=== PATIENT | female | born 1995 | race Two or more races ===

== ENCOUNTER 2018-01-23 13:59 | Outpatient (CLI) | END 2018-01-23 17:00 | disposition home or self-care (01) ==

== ENCOUNTER 2018-01-23 17:26 | Emergency (ER) | END 2018-01-23 19:26 | disposition home or self-care (01) ==

== ENCOUNTER 2018-05-19 06:05 | Inpatient (IN) | payer MEDICAID, OTHER ==
[~2018-05-19] VITALS: Ht 162.6 cm; Wt 84.0 kg
[~2018-05-19 06:05] MED LIST: ACET325T33 PO
[2018-05-19 06:40] VITALS: Ht 162.6 cm; Wt 84.0 kg
[2018-05-19 06:41] VITALS: BP 115/71; PULSE 64; RESP 18
[2018-05-19] MEDS ORDERED: TERBUTALINE 1 MG/ML INJ SC ONE (07:30)
[2018-05-19] MEDS ORDERED: LACTATED RINGER'S 1,000 ML IV ONE (07:30)
[2018-05-19] MEDS ORDERED: CEFTRIAXONE 1 GM/50 ML (PMX) 50 ML IVPB ONE (07:30)
[2018-05-19] MEDS ORDERED: LACTATED RINGER'S 1,000 ML IV SCH (13:05)
[2018-05-19] MEDS: LACTATED RINGER'S 1,000 ML IV SCH ×2 (13:17→22:42)
[2018-05-19] MEDS ORDERED: BUTORPHANOL 1 MG INJ IV PRN (13:30)
[2018-05-19] MEDS ORDERED: MISOPROSTOL 200 MCG TAB PR PRN (13:30)
[2018-05-19] MEDS ORDERED: LIDOCAINE 1% (MPF) 30 ML INJ INJ PRN (13:30)
[2018-05-19] MEDS ORDERED: METHYLERGONOVINE 0.2 MG INJ IM PRN (13:30)
[2018-05-19] MEDS ORDERED: BUTORPHANOL 2 MG INJ IV PRN (13:30)
[2018-05-19] MEDS ORDERED: OXYTOCIN 30 UNITS/LR 500 ML IV PRN (13:30)
[2018-05-19] MEDS ORDERED: OXYTOCIN 30 UNITS/LR 500 ML IV SCH ×2 (13:30)
[2018-05-19] MEDS ORDERED: CARBOPROST 250 MCG INJ IM PRN (13:30)
[2018-05-19] MEDS ORDERED: AMPICILLIN 2 GM/NS (PMX) 100 ML ONE (15:48)
[2018-05-19] MEDS ORDERED: AMPICILLIN 2 GM/NS (PMX) 100 ML IVPB ONE (16:00)
--- NOTE | 2018-05-19 16:59 | HP ---
Date/Time of Note Date/Time of Note DATE: 05/19/18 TIME: 16:49 OB - History Hx of Present Free Text/Dictation 22y.o at 36w4d here with vaginal bleeding since this 0400 this AM also c/o back pain with decrease movement since 05/08/18 VE 2/60/-2 EFM CAT I CVA left + tenderness IV hydration and rocephin 1gm given , still showing UC frequently admitted for expectant management. GBS unknown no record is available. Chief Complaint: UC's with back pain Estimated Due Date: Jun 12, 2018 : 1 Para: 0 Spontaneous : 0 Therapeutic : 0 Care: Other Ultrasounds: Other Obstetrical Complications: None Medical Complications: None Past Family/Social History * Past Medical, Surgical, Family and Obstetric Histories reviewed from chart. Blood Type: Unknown Rubella: unknown RPR/VDRL: Unknown GBS Status: Unknown HBsAG: Unknown OB Admission Exam Vital Signs Vital Signs Vital Signs Date Temp Pulse Resp B/P (MAP) Pulse Ox O2 O2 Flow FiO2 Time Delivery Rate 05/19/18 97.4 64 18 115/71 Room Air 06:41 (86) Physical Exam HEENT: WNL Heart: Rhythm Normal Lungs: Clear, Equal Abdomen: WNL Extremities: Normal Reflexes: Normal Cervical Dilatation: 2cm Effacement: 50% Station: -2 Membranes: Intact Amniotic Fluid: Unevaluable Heart Rate: 130's Accelerations: Accelerations Present Decelerations: No Decelerations Varibility: Moderate Contractions on Admission: < 5 Minutes Apart Intensity: Mild Last 72 hours Lab Results CBC & BMP 05/19/18 14:31 OB Assessment/Plan Reason for admission: labor Other Assessment: IUP 36w4d UTI Plan: Expectant Management, Other (rocephin) LORELEI SANTIAGO MD May 19, 2018 16:59
[2018-05-19] MEDS ORDERED: FENTAnyl 2MCG/ML-ROPIV 0.2% 100 ML ONE (19:45)
--- NOTE | 2018-05-19 19:47 | PREAC ---
Date/Time of Note Date/Time of Note DATE: 05/19/18 TIME: 19:46 Anesthesia Eval and Record Evaluation Time Pre-Procedure Interview DATE: 05/19/18 TIME: 19:46 Age 22 Sex female NPO: 8 hrs Preoperative diagnosis iup at 37 weeks Planned procedure labor epidural Past Medical History Past Medical History: Includes GI: Obesity Surgery & Anesthesia Issues No known issue Meds Anticoagulation: No Beta Maday within 24 hr: No Reason Beta Maday not given: Pt. not on B-Maday Active Scripts Acetaminophen* (Tylenol*) 325 Mg Tablet, 1 TAB PO Q6 PRN for PAIN, #20 TAB Prov:VICKI LOPEZ 01/23/18 Current Medications Lactated Ringer's 1,000 ml @ 125 mls/hr Q8H IV Last administered on 05/19/18at 13:17; Admin Dose 125 MLS/HR; Start 05/19/18 at 08:30 Lactated Ringer's 1,000 ml @ 125 mls/hr Q8H IV Last administered on 05/19/18at 18:42; Admin Dose 125 MLS/HR; Start 05/19/18 at 13:05 Butorphanol Tartrate (Stadol) 1 mg Q2H PRN IV .PAIN; Start 05/19/18 at 13:30 Butorphanol Tartrate (Stadol) 2 mg Q2H PRN IV .PAIN; Start 05/19/18 at 13:30 Lidocaine (Xylocaine 1% (Mpf)) 30 ml ONCE PRN INJ .EPISIOTOMY; Start 05/19/18 at 13:30 Oxytocin/Lactated Ringer's 500 ml @ 500 mls/hr ONCE POST IV ; Start 05/19/18 at 13:30 Oxytocin/Lactated Ringer's 500 ml @ 125 mls/hr POST IV ; Start 05/19/18 at 13:30 Oxytocin/Lactated Ringer's 500 ml @ 0 mls/hr ONCE PRN IV .VAGINAL BLEEDING; Start 05/19/18 at 13:30 Methylergonovine Maleate (Methergine) 0.2 mg ONCE PRN IM .VAGINAL BLEEDING; Start 05/19/18 at 13:30 Carboprost Tromethamine (Hemabate) 250 mcg ONCE PRN IM .VAGINAL BLEEDING; Start 05/19/18 at 13:30 Misoprostol (Cytotec) 1,000 mcg ONCE PRN GA .VAGINAL BLEEDING; Start 05/19/18 at 13:30 Ampicillin 50 ml @ 100 mls/hr Q4H IVPB ; Start 05/19/18 at 20:00 Meds reviewed: Yes Allergies Coded Allergies: No Known Allergy (Unverified , 01/23/18) Allergies Reviewed: Yes Labs/Studies Labs Reviewed: Reviewed by anesthesiologist Result Diagram: 05/19/18 1431 Laboratory Tests 05/19/18 14:31 Blood Bank Test 05/19/18 14:31 Antibody Screen NEGATIVE Blood Type O POSITIVE Rh Immune Globulin Candidate NO test: Positive Pre-procedure Exam Last vitals Vital Signs Date Temp Pulse Resp B/P (MAP) Pulse Ox O2 O2 Flow FiO2 Time Delivery Rate 05/19/18 97.4 64 18 115/71 Room Air 06:41 (86) Airway: Adequate mouth opening, Adequate thyromental dist Mallampati: Mallampati II Teeth: Normal Lung: Normal Heart: Normal ASA Physical Status ASA physical status: 2 Emergency: None Planned Anesthetic Neuraxial: Epidural Planned Pain Management Parenteral pain med Pre-operative Attestations Prior to commencing anesthesia and surgery, the patient was re-evaluated, there was verification of: *The patient's identity *The results of appropriate recent lab work and preoperative vital signs *The above evaluation not changing prior to induction *Anesthetic plan, risk benefits, alternative and complications discussed with patient/family; questions answered; patient/family understands, accepts and wishes to proceed. MULUGETA MEADOWS May 19, 2018 19:47
[2018-05-19] MEDS ORDERED: NALOXONE (0.4 MG/ML) INJ IV PRN (20:00)
[2018-05-19] MEDS ORDERED: AMPICILLIN 1 GM/NS (PMX) 50 ML IVPB SCH (20:00)
[2018-05-19] MEDS ORDERED: FENTAnyl 2MCG/ML-ROPIV 0.2% 100 ML BAG EPI SCH (20:00)
[2018-05-19] MEDS ORDERED: DIPHENHYDRAMINE 50 MG INJ IV PRN (20:00)
[2018-05-19] MEDS ORDERED: ONDANSETRON 4 MG INJ IV PRN (20:00)
--- NOTE | 2018-05-19 21:56 | PAC ---
Date/Time of Note Date/Time of Note DATE: 05/19/18 TIME: 21:56 Post-Anesthesia Notes Post-Anesthesia Note Last documented vital signs Vital Signs Date Temp Pulse Resp B/P (MAP) Pulse Ox O2 O2 Flow FiO2 Time Delivery Rate 05/19/18 97.4 64 18 115/71 Room Air 21:41 (86) Activity: WNL Respiratory function: WNL Cardiovascular function: WNL Mental status: Baseline Pain reasonably controlled: Yes Hydration appropriate: Yes Nausea/Vomiting absent: Yes MULUGETA MEADOWS May 19, 2018 21:56
--- NOTE | 2018-05-20 01:11 | LDN ---
Date/Time of Note Date/Time of Note DATE: 05/20/18 TIME: 01:07 Delivery Summary 22-year old G1 with single intrauterine at 36 weeks and 5 days delivered a viable male over first-degree vaginal and left labial laceration. Nose and mouth suctioned. Rest of body delivered. Cord clamped and cut after stopping pulsation. Baby given to the nurse. Laceration repaired with 3-0 Vicryl. Patient tolerated procedure well Amniotic fluid: thin meconium time of delivery 00.06 Weight 7 pounds 6 ounces - 3345 g 8 at 1 minutes and 9 at 5 minutes EBL 300 and Weeks of Gestation 36 weeks and 5 days Placenta Delivered: Spontaneously Meconium: Light Episiotomy: No Anesthesia type: Epidural Estimated blood loss: 300 Sponge & Needle done & correct: Yes All needle counts correct: Yes Any foreign bodies felt in the: No Infant Delivery Information Sex Sex: male Apgars 1 Minute: 8 5 Minute: 9 10 Minute: 10 Suctioning Nose & mouth suctioned at darío: Yes Umbilical Cord Umbilical cord with: 3 Vessels Cord Blood was obtained: Yes Mother & Baby Disposition Disposition Mom & Baby to Maternity; Good: Yes SANNA POOL May 20, 2018 01:11
[2018-05-20 02:40] VITALS: BP 136/88; PULSE 66; RESP 18
[2018-05-20] MEDS: DEXTROSE 5%-LR 1,000 ML IV SCH ×2 (03:06→11:06)
[2018-05-20] MEDS ORDERED: MISOPROSTOL 200 MCG TAB PR PRN (03:30)
[2018-05-20] MEDS ORDERED: CARBOPROST 250 MCG INJ IM PRN (03:30)
[2018-05-20] MEDS ORDERED: WITCH HAZEL/GLYCERIN PAD PR PRN (03:30)
[2018-05-20] MEDS ORDERED: DIBUCAINE 1% 30 GM OINT TOP PRN (03:30)
[2018-05-20] MEDS ORDERED: LANOLIN HPA 1 PKT TOP PRN (03:30)
[2018-05-20] MEDS ORDERED: OXYTOCIN 30 UNITS/LR 500 ML IV PRN (03:30)
[2018-05-20] MEDS ORDERED: METHYLERGONOVINE 0.2 MG INJ IM PRN (03:30)
[2018-05-20] MEDS ORDERED: BENZOCAINE 20% 56 ML SPRAY TOP PRN (03:30)
[2018-05-20] MEDS ORDERED: DIPHENHYDRAMINE 50 MG INJ IV PRN (03:30)
[2018-05-20] MEDS ORDERED: ZOLPIDEM 5 MG TAB PO PRN (03:30)
[2018-05-20] MEDS ORDERED: ONDANSETRON 4 MG INJ IV PRN (03:30)
[2018-05-20] MEDS ORDERED: ACETAMINOPHEN 325 MG TAB PO PRN (03:30)
[2018-05-20] MEDS: IBUPROFEN 600 MG TAB PO SCH ×4 (05:33→23:40)
[2018-05-20] MEDS: LACTATED RINGER'S 1,000 ML IV* SCH ×2 (05:34→11:06)
[2018-05-20 07:40] VITALS: BP 106/68; PULSE 66; RESP 16
[2018-05-20] MEDS: SENNA/DOCUSATE NA (8.6MG/50MG) TAB PO PRN ×2 (09:19→20:42)
[2018-05-20 16:06] VITALS: BP 108/70; PULSE 68; RESP 16
[2018-05-20 20:25] VITALS: BP 123/72; PULSE 66; RESP 18
[2018-05-21 04:07] VITALS: BP 117/80; PULSE 64; RESP 17
[2018-05-21] MEDS: IBUPROFEN 600 MG TAB PO SCH ×3 (05:47→17:27)
[2018-05-21 07:30] VITALS: BP 112/70; PULSE 60; RESP 18
[2018-05-21] MEDS: OXYCODONE/ASPIRIN (4.88/325) TAB PO PRN ×2 (07:42→20:13)
[2018-05-21] MEDS: SENNA/DOCUSATE NA (8.6MG/50MG) TAB PO PRN (08:54)
--- NOTE | 2018-05-21 10:37 | DS ---
Date/Time of Note Date/Time of Note DATE: 05/21/18 TIME: 10:36 Discharge Summary Admission/Discharge Info Admit Date/Time May 19, 2018 at 13:51 Discharge Date/Time Discharge Diagnosis term Patient Condition: Stable Hospital Course unremarkable Home Meds Active Scripts Acetaminophen* (Tylenol*) 325 Mg Tablet, 1 TAB PO Q6 PRN for PAIN, #20 TAB Prov:VICKI LOPEZ DO 01/23/18 Primary Care Provider Care Physician No Primary Pending Labs Laboratory Tests Test 05/21/18 07:01 White Blood Count 6.5 10^3/ul (4.8-10.8) Red Blood Count 3.39 10^6/ul (4.20-5.40) Hemoglobin 10.3 g/dl (12.0-16.0) Hematocrit 31.6 % (37.0-47.0) Mean Corpuscular Volume 93.2 fl (82.0-101.0) Mean Corpuscular Hemoglobin 30.4 pg (29.0-33.0) Mean Corpuscular Hemoglobin Concent 32.6 g/dl (32.0-37.0) Red Cell Distribution Width 12.6 % (11.5-14.5) Platelet Count 169 10^3/UL (140-415) Mean Platelet Volume 12.3 fl (7.4-10.4) Immature Granulocytes % 1.100 % (0.001-0.429) Neutrophils % 64.6 % (39.0-77.0) Lymphocytes % 23.1 % (15.0-51.0) Monocytes % 8.9 % (0.0-11.0) Eosinophils % 1.8 % (0.0-7.0) Basophils % 0.5 % (0.0-2.0) Nucleated Red Blood Cells % 0.0 /100WBC (0.0-0.0) Immature Granulocytes # 0.070 10^3/ul (0.0-0.031) Neutrophils # 4.2 10^3/ul (1.6-7.5) Lymphocytes # 1.5 10^3/ul (0.8-2.9) Monocytes # 0.6 10^3/ul (0.3-0.9) Eosinophils # 0.1 10^3/ul (0.0-0.5) Basophils # 0.0 10^3/ul (0.0-0.1) Nucleated Red Blood Cells # 0.0 10^3/ul (0.0-0.0) TOPHER SHEIKH MD May 21, 2018 10:37
--- NOTE | 2018-05-21 11:47 | QN ---
Documentation Comment PPD#1 is stable No VB +BM +voids VS stable Gen NA Abd soft NT ND Genitalia No blood at perineum __>discharge plan tomorrow --->Ambulation LEOBARDO PLAZA M.D. May 21, 2018 11:47
[2018-05-21 16:00] VITALS: BP 112/70; PULSE 69; RESP 17
[2018-05-22] MEDS: IBUPROFEN 600 MG TAB PO SCH ×3 (00:16→12:19)
[2018-05-22 04:10] VITALS: BP 109/68; PULSE 65; RESP 17
[2018-05-22 08:00] VITALS: BP 136/89; PULSE 72; RESP 18
--- NOTE | 2018-05-22 08:13 | QN ---
Documentation Comment DOING WELL VSS ABD SOFT D/C HOME TODAY TOPHER SHEIKH MD May 22, 2018 08:13
[2018-05-22] MEDS ORDERED: MEASLES,MUMPS,RUBELLA VACCINE INJ SC* ONE (09:00)
[2018-05-22] MEDS ORDERED: DIPHTH/TET/ACEL PERTUSS (ADULT) 0.5 ML VIAL IM* ONE (09:00)
== END 2018-05-22 13:50 | disposition home or self-care (01) | DRG 805 ==
LOC: OBT 06:05 → L-D 06:05 → OBT 10:45 → L-D 13:20 → UNDOADMIN 13:20 → L-D 13:51 → PP1 05-20 02:28
PROVIDERS: ADMIT Obstetrics & Gynecology; ATTEND Obstetrics & Gynecology
PROC: 10E0XZZ Delivery of Products of Conception, External Approach (ICD-10-PCS; principal; 2018-05-20)
PROC: 0HQ9XZZ Repair Perineum Skin, External Approach (ICD-10-PCS; 2018-05-20)
DX: O75.3 Other infection during labor (principal); O60.14X0 Preterm labor third trimester with preterm delivery third trimester, not applicable or unspecified; Z37.0 Single live birth; O36.8130 Decreased fetal movements, third trimester, not applicable or unspecified; O70.0 First degree perineal laceration during delivery; O77.0 Labor and delivery complicated by meconium in amniotic fluid; O99.214 Obesity complicating childbirth; E66.9 Obesity, unspecified; Z3A.36 36 weeks gestation of pregnancy; Z23 Encounter for immunization
CPT/HCPCS: 62319; 76818; 81001; 85025; 85610; 85730; 86592; 86850; 86900; 86901; 87340; 90686; 99464; G0463; J0290; J0595; J0696; J2210; J2590; J3010; J3105; J7120; J7121